=== PATIENT | female | born 1980 | race Caucasian/White ===

== ENCOUNTER 2020-11-18 13:15 | Emergency (ER) | payer SELFPAY ==
[~2020-11-18] VITALS: Ht 160 cm; Wt 47.7 kg
[2020-11-18 13:43] VITALS: BP 118/80; PULSE 84; TEMP 99
== END 2020-11-18 16:33 | disposition left against medical advice (07) ==
LOC: COL.ER 13:15
DX: S16.1XXA Strain of muscle, fascia and tendon at neck level, initial encounter (principal); S39.012A Strain of muscle, fascia and tendon of lower back, initial encounter; S40.011A Contusion of right shoulder, initial encounter; W01.0XXA Fall on same level from slipping, tripping and stumbling without subsequent striking against object, initial encounter
CPT/HCPCS: J1885; J2360